=== PATIENT | female | born 1980 | race Caucasian/White ===

== ENCOUNTER 2019-10-30 10:08 | Outpatient (CLI) | payer OTHER ==
[2019-10-30] MEDS ORDERED: CALCIUM GLUCONATE 2,000 MG in DEXTROSE 5%-WATER 100 ML IV PRN (10:21)
[2019-10-30] MEDS ORDERED: NORMAL SALINE 250 ML IV PRN (10:21)
[2019-10-30 10:44] VITALS: BP 129/86
[2019-10-30] MEDS: MAGNESIUM SULFATE/D5W 1 GM/100 ML RTUPB IV SCH ×3 (10:53→12:52)
== END 2019-10-30 14:15 | disposition home or self-care (01) ==
LOC: II 10:08 → 5TH 10:12 → II 14:15
PROVIDERS: ATTEND Internal Medicine
DX: E83.51 Hypocalcemia (principal); E83.42 Hypomagnesemia
CPT/HCPCS: 96365; 96366; 96367; J0610; J3475; J7060; J1642

== ENCOUNTER 2019-11-02 09:12 | Outpatient (CLI) | payer OTHER ==
[~2019-11-02 09:12] MED LIST: CALCIUM GLUCONATE 2,000 MG in DEXTROSE 5%-WATER 100 ML IV PRN; NORMAL SALINE 250 ML IV PRN
[2019-11-02] MEDS: MAGNESIUM SULFATE/D5W 1 GM/100 ML RTUPB IV SCH ×3 (09:36→11:35)
[2019-11-02 09:56] VITALS: BP 120/84
== END 2019-11-02 12:45 | disposition home or self-care (01) ==
LOC: II 09:12 → 5TH 09:32 → II 12:45
PROVIDERS: ATTEND Internal Medicine
DX: E83.51 Hypocalcemia (principal); E83.42 Hypomagnesemia
CPT/HCPCS: 96365; 96366; 96367; J0610; J3475; J7060; J1642

== ENCOUNTER 2019-11-08 09:22 | Outpatient (CLI) | payer OTHER ==
[~2019-11-08 09:22] MED LIST changes: +MAGNESIUM SULFATE 4 GM/D5W 100 ML IV PRN; +MAGNESIUM SULFATE/D5W 1 GM/100 ML RTUPB IV PRN; -NORMAL SALINE 250 ML IV PRN
[2019-11-08 09:36] VITALS: BP 138/74
[2019-11-08] MEDS: NORMAL SALINE 250 ML IV PRN ×2 (09:44→12:57)
[2019-11-08] MEDS ORDERED: ACETAMINOPHEN 325 MG TABLET PO PRN (10:02)
[2019-11-08] MEDS ORDERED: DIPHENHYDRAMINE HCL 50 MG/ML VIAL IV PRN (10:03)
[2019-11-08] MEDS ORDERED: NORMAL SALINE 250 ML IV PRN (10:03)
[2019-11-08] MEDS ORDERED: VEDOLIZUMAB IV PRN (10:07)
[2019-11-08] MEDS ORDERED: NORMAL SALINE IV PRN (10:07)
== END 2019-11-08 13:43 | disposition home or self-care (01) ==
LOC: II 09:22 → 5TH 09:23 → II 13:43
PROVIDERS: ATTEND Internal Medicine
DX: E83.51 Hypocalcemia (principal); E83.42 Hypomagnesemia; K50.111 Crohn's disease of large intestine with rectal bleeding
CPT/HCPCS: 96365; 96366; 96367; J3475; J0610; J7060; J7050; J1642; J3380

== ENCOUNTER 2019-11-15 09:15 | Outpatient (CLI) | payer OTHER ==
[~2019-11-15 09:15] MED LIST changes: -MAGNESIUM SULFATE/D5W 1 GM/100 ML RTUPB IV PRN; +NORMAL SALINE 250 ML IV PRN
[2019-11-15 09:36] VITALS: BP 119/79
== END 2019-11-15 13:47 | disposition home or self-care (01) ==
LOC: II 09:15 → 5TH 09:36 → II 13:47
PROVIDERS: ATTEND Internal Medicine
DX: E83.51 Hypocalcemia (principal); E83.42 Hypomagnesemia
CPT/HCPCS: 96365; 96366; 96367; J3475; J0610; J7060; J1642

== ENCOUNTER 2019-11-22 09:20 | Outpatient (CLI) | payer OTHER ==
[2019-11-22] MEDS ORDERED: CALCIUM GLUCONATE 2,000 MG in DEXTROSE 5%-WATER 100 ML IV PRN (09:26)
[2019-11-22] MEDS ORDERED: MAGNESIUM SULFATE 4 GM/D5W 100 ML IV PRN (09:27)
[2019-11-22] MEDS ORDERED: NORMAL SALINE 250 ML IV PRN (09:28)
[2019-11-22 09:32] VITALS: BP 116/69
== END 2019-11-22 14:01 | disposition home or self-care (01) ==
LOC: II 09:20 → 5TH 09:22 → II 14:01
PROVIDERS: ATTEND Internal Medicine
DX: E83.51 Hypocalcemia (principal); E83.42 Hypomagnesemia
CPT/HCPCS: 96365; 96366; 96367; J3475; J0610; J7060; J1642

== ENCOUNTER 2019-11-30 09:07 | Outpatient (CLI) | payer OTHER ==
[2019-11-30 09:23] VITALS: BP 119/82
== END 2019-11-30 13:37 | disposition home or self-care (01) ==
LOC: II 09:07 → 5TH 09:09 → II 13:37
PROVIDERS: ATTEND Internal Medicine
DX: E83.51 Hypocalcemia (principal); E83.42 Hypomagnesemia
CPT/HCPCS: 96365; 96366; 96367; J3475; J0610; J7060; J1642

== ENCOUNTER 2019-12-07 09:11 | Outpatient (CLI) | payer OTHER ==
[~2019-12-07 09:11] MED LIST changes: +ACETAMINOPHEN 325 MG TABLET PO PRN; +DIPHENHYDRAMINE HCL 50 MG/ML VIAL IV PRN; +NORMAL SALINE 250 ML @ KVO IV PRN; -NORMAL SALINE 250 ML IV PRN; +NORMAL SALINE IV PRN; +VEDOLIZUMAB IV PRN
[2019-12-07 09:24] VITALS: BP 111/71
== END 2019-12-07 14:12 | disposition home or self-care (01) ==
LOC: II 09:11 → 5TH 09:13 → II 14:12
PROVIDERS: ATTEND Internal Medicine
DX: K50.111 Crohn's disease of large intestine with rectal bleeding (principal); E83.51 Hypocalcemia; E83.42 Hypomagnesemia
CPT/HCPCS: 96413; 96366; 96367; 96368; J3475; J0610; J7060; J7050; J1642; J3380; J1200

== ENCOUNTER 2019-12-14 09:12 | Outpatient (CLI) | payer OTHER ==
[2019-12-14] MEDS ORDERED: NORMAL SALINE 250 ML IV PRN (09:28)
[2019-12-14] MEDS ORDERED: MAGNESIUM SULFATE 4 GM/D5W 100 ML IV PRN (09:29)
[2019-12-14 09:44] VITALS: BP 125/91
[2019-12-14] MEDS: CALCIUM GLUCONATE 1 GM/NS 50 ML RTU IV SCH ×2 (09:56→10:56)
== END 2019-12-14 14:08 | disposition home or self-care (01) ==
LOC: II 09:12 → 5TH 09:21 → II 14:08
PROVIDERS: ATTEND Internal Medicine
DX: E83.51 Hypocalcemia (principal); E83.42 Hypomagnesemia
CPT/HCPCS: 96365; 96366; 96367; J3475; J1642; J0610

== ENCOUNTER 2019-12-21 09:12 | Outpatient (CLI) | payer OTHER ==
[~2019-12-21 09:12] MED LIST changes: -ACETAMINOPHEN 325 MG TABLET PO PRN; -CALCIUM GLUCONATE 2,000 MG in DEXTROSE 5%-WATER 100 ML IV PRN; -DIPHENHYDRAMINE HCL 50 MG/ML VIAL IV PRN; -NORMAL SALINE 250 ML @ KVO IV PRN; +NORMAL SALINE 250 ML IV PRN; -NORMAL SALINE IV PRN; -VEDOLIZUMAB IV PRN
[2019-12-21] MEDS: CALCIUM GLUCONATE 1 GM/NS 50 ML RTU IV PRN ×2 (09:32→11:13)
[2019-12-21 09:52] VITALS: BP 110/56
== END 2019-12-21 12:45 | disposition home or self-care (01) ==
LOC: II 09:12 → 5TH 09:14 → II 12:45
PROVIDERS: ATTEND Internal Medicine
DX: E83.51 Hypocalcemia (principal); E83.42 Hypomagnesemia
CPT/HCPCS: 96365; 96366; 96367; J3475; J1642; J0610

== ENCOUNTER 2019-12-28 09:10 | Outpatient (CLI) | payer OTHER ==
[2019-12-28 09:39] VITALS: BP 121/73
[2019-12-28] MEDS: CALCIUM GLUCONATE 1 GM/NS 50 ML RTU IV PRN ×2 (09:44→11:21)
== END 2019-12-28 14:08 | disposition home or self-care (01) ==
LOC: 5TH 09:10 → II 09:10
PROVIDERS: ATTEND Internal Medicine
DX: E83.51 Hypocalcemia (principal); E83.42 Hypomagnesemia
CPT/HCPCS: 96365; 96366; 96367; J3475; J1642; J0610

== ENCOUNTER 2020-01-04 09:02 | Outpatient (CLI) | payer OTHER ==
[~2020-01-04 09:02] MED LIST changes: +ACETAMINOPHEN 325 MG TABLET PO PRN; +DIPHENHYDRAMINE 50 MG in NS 50 ML IV PRN; +NORMAL SALINE 250 ML @ KVO IV PRN; -NORMAL SALINE 250 ML IV PRN; +NORMAL SALINE IV PRN; +VEDOLIZUMAB IV PRN
[2020-01-04 09:41] VITALS: BP 117/76
[2020-01-04] MEDS ORDERED: DIPHENHYDRAMINE HCL 50 MG/ML VIAL IV PRN (10:29)
[2020-01-04] MEDS: CALCIUM GLUCONATE 1 GM/NS 50 ML RTU IV PRN ×2 (10:30→12:38)
== END 2020-01-04 15:50 | disposition home or self-care (01) ==
LOC: II 09:02 → 5TH 09:04 → II 15:50
PROVIDERS: ATTEND Internal Medicine
DX: E83.51 Hypocalcemia (principal); E83.42 Hypomagnesemia; K50.111 Crohn's disease of large intestine with rectal bleeding
CPT/HCPCS: 96413; 96366; 96367; J3475; J7050; J1642; J3380; J0610; J1200

== ENCOUNTER 2020-01-11 08:15 | Outpatient (CLI) | payer OTHER ==
[~2020-01-11 08:15] MED LIST changes: -ACETAMINOPHEN 325 MG TABLET PO PRN; -DIPHENHYDRAMINE 50 MG in NS 50 ML IV PRN; -NORMAL SALINE 250 ML @ KVO IV PRN; +NORMAL SALINE 250 ML IV PRN; -NORMAL SALINE IV PRN; -VEDOLIZUMAB IV PRN
[2020-01-11] MEDS: CALCIUM GLUCONATE 1 GM/NS 50 ML RTU IV PRN ×2 (08:41→10:38)
[2020-01-11 08:42] VITALS: BP 111/75
== END 2020-01-11 13:08 | disposition home or self-care (01) ==
LOC: II 08:15 → 5TH 08:15 → II 13:08
PROVIDERS: ATTEND Internal Medicine
DX: E83.51 Hypocalcemia (principal); E83.42 Hypomagnesemia
CPT/HCPCS: 96365; 96366; J3475; J1642; J0610; 90471; 96368; G0008

== ENCOUNTER 2020-01-18 09:16 | Outpatient (CLI) | payer OTHER ==
[2020-01-18 09:47] VITALS: BP 111/77
[2020-01-18] MEDS: CALCIUM GLUCONATE 1 GM/NS 50 ML RTU IV PRN ×2 (09:47→11:38)
== END 2020-01-18 14:00 | disposition home or self-care (01) ==
LOC: II 09:16
PROVIDERS: ATTEND Internal Medicine
DX: E83.51 Hypocalcemia (principal); E83.42 Hypomagnesemia
CPT/HCPCS: 96365; 96366; 96367; J3475; J1642; J0610

== ENCOUNTER 2020-01-25 09:13 | Outpatient (CLI) | payer OTHER ==
[2020-01-25] MEDS: CALCIUM GLUCONATE 1 GM/NS 50 ML RTU IV PRN ×2 (09:36→11:38)
[2020-01-25 09:41] VITALS: BP 120/78
== END 2020-01-25 13:51 | disposition home or self-care (01) ==
LOC: II 09:13 → 5TH 09:34 → II 13:51
PROVIDERS: ATTEND Internal Medicine
DX: E83.51 Hypocalcemia (principal); E83.42 Hypomagnesemia
CPT/HCPCS: 96366; 96367; 96365; J3475; J1642; J0610

== ENCOUNTER 2020-02-01 09:11 | Outpatient (CLI) | payer OTHER ==
[~2020-02-01 09:11] MED LIST changes: +ACETAMINOPHEN 325 MG TABLET PO PRN; +DIPHENHYDRAMINE HCL 50 MG/ML VIAL IV PRN; +NORMAL SALINE IV PRN; +VEDOLIZUMAB IV PRN
[2020-02-01] MEDS: CALCIUM GLUC IN NACL, ISO-OSM 1 GM/50 ML RTUPB IV PRN ×2 (09:32→11:37)
[2020-02-01 09:40] VITALS: BP 122/78
== END 2020-02-01 14:23 | disposition home or self-care (01) ==
LOC: II 09:11 → 5TH 09:13 → II 14:23
PROVIDERS: ATTEND Internal Medicine
DX: K50.111 Crohn's disease of large intestine with rectal bleeding (principal); E83.51 Hypocalcemia; E83.42 Hypomagnesemia
CPT/HCPCS: 96413; 96366; 96367; J3475; J7050; J1642; J3380; J0610

== ENCOUNTER 2020-02-08 09:20 | Outpatient (CLI) | payer OTHER ==
[~2020-02-08 09:20] MED LIST changes: -ACETAMINOPHEN 325 MG TABLET PO PRN; +CALCIUM GLUCONATE 1 GM/NS 50 ML RTU IV PRN; -DIPHENHYDRAMINE HCL 50 MG/ML VIAL IV PRN; -NORMAL SALINE IV PRN; -VEDOLIZUMAB IV PRN
[2020-02-08] MEDS ORDERED: CALCIUM GLUCONATE 1000 MG/10 ML INJ IV ONE (09:24)
[2020-02-08 09:51] VITALS: BP 121/68
== END 2020-02-08 14:12 | disposition home or self-care (01) ==
LOC: II 09:20 → 5TH 09:23 → II 14:12
PROVIDERS: ATTEND Internal Medicine
DX: E83.51 Hypocalcemia (principal); E83.42 Hypomagnesemia
CPT/HCPCS: 96365; 96366; 96367; J3475; J0610; J1642

== ENCOUNTER 2020-02-15 09:10 | Outpatient (CLI) | payer OTHER ==
[2020-02-15] MEDS ORDERED: CALCIUM GLUC IN NACL, ISO-OSM 2 GM/100 ML RTUPB IV PRN (09:20)
[2020-02-15] MEDS ORDERED: CALCIUM GLUCONATE 1000 MG/10 ML INJ IV ONE (09:37)
[2020-02-15 09:50] VITALS: BP 110/76
== END 2020-02-15 14:15 | disposition home or self-care (01) ==
LOC: II 09:10 → 5TH 09:12 → II 14:15
PROVIDERS: ATTEND Internal Medicine
DX: E83.51 Hypocalcemia (principal); E83.42 Hypomagnesemia
CPT/HCPCS: 96365; 96366; 96367; J3475; J0610; J1642

== ENCOUNTER 2020-02-22 09:14 | Outpatient (CLI) | payer OTHER ==
[~2020-02-22 09:14] MED LIST changes: -CALCIUM GLUCONATE 1 GM/NS 50 ML RTU IV PRN
[2020-02-22] MEDS: CALCIUM GLUCONATE 1 GM/NS 50 ML RTU IV PRN ×2 (09:47→11:36)
[2020-02-22 10:54] VITALS: BP 124/71
== END 2020-02-22 13:45 | disposition home or self-care (01) ==
LOC: II 09:14 → 5TH 09:18 → II 13:45
PROVIDERS: ATTEND Internal Medicine
DX: E83.51 Hypocalcemia (principal); E83.42 Hypomagnesemia
CPT/HCPCS: 96365; 96366; 96367; J3475; J1642; J0610

== ENCOUNTER 2020-02-29 09:14 | Outpatient (CLI) | payer OTHER ==
[~2020-02-29 09:14] MED LIST changes: +ACETAMINOPHEN 325 MG TABLET PO PRN; +DIPHENHYDRAMINE HCL 50 MG/ML VIAL IV PRN; +NORMAL SALINE IV PRN; +VEDOLIZUMAB IV PRN
[2020-02-29 09:25] VITALS: BP 120/81
[2020-02-29] MEDS: CALCIUM GLUCONATE 1 GM/NS 50 ML RTU IV PRN ×2 (09:46→11:56)
== END 2020-02-29 14:13 | disposition home or self-care (01) ==
LOC: II 09:14 → 5TH 09:19 → II 14:13
PROVIDERS: ATTEND Internal Medicine
DX: E83.51 Hypocalcemia (principal); E83.42 Hypomagnesemia; K50.111 Crohn's disease of large intestine with rectal bleeding
CPT/HCPCS: 96413; 96366; 96367; J3475; J7050; J1642; J3380; J0610; 96365

== ENCOUNTER 2020-03-07 09:15 | Outpatient (CLI) | payer OTHER ==
[2020-03-07] MEDS ORDERED: NORMAL SALINE 250 ML IV PRN (09:27)
[2020-03-07] MEDS ORDERED: MAGNESIUM SULFATE 4 GM/D5W 100 ML IV PRN (09:27)
[2020-03-07 09:31] VITALS: BP 125/73
[2020-03-07] MEDS: CALCIUM GLUCONATE 1 GM/NS 50 ML RTU IV PRN ×2 (09:32→11:16)
== END 2020-03-07 13:38 | disposition home or self-care (01) ==
LOC: II 09:15 → 5TH 09:18 → II 13:38
PROVIDERS: ATTEND Internal Medicine
DX: E83.51 Hypocalcemia (principal); E83.42 Hypomagnesemia
CPT/HCPCS: 96365; 96366; 96367; J3475; J1642; J0610

== ENCOUNTER 2020-03-14 09:05 | Outpatient (CLI) | payer OTHER ==
[~2020-03-14 09:05] MED LIST changes: -ACETAMINOPHEN 325 MG TABLET PO PRN; -DIPHENHYDRAMINE HCL 50 MG/ML VIAL IV PRN; -NORMAL SALINE IV PRN; -VEDOLIZUMAB IV PRN
[2020-03-14] MEDS: CALCIUM GLUCONATE 1 GM/NS 50 ML RTU IV PRN ×2 (09:20→10:44)
[2020-03-14 10:12] VITALS: BP 118/72
== END 2020-03-14 13:22 | disposition home or self-care (01) ==
LOC: II 09:05 → 5TH 09:08 → II 13:22
PROVIDERS: ATTEND Internal Medicine
DX: E83.51 Hypocalcemia (principal); E83.42 Hypomagnesemia
CPT/HCPCS: 96365; 96366; 96367; J3475; J1642; J0610

== ENCOUNTER 2020-03-21 09:19 | Outpatient (CLI) | payer OTHER ==
[~2020-03-21 09:19] MED LIST changes: +NORMAL SALINE 250 ML @ KVO IV PRN; -NORMAL SALINE 250 ML IV PRN
[2020-03-21 09:46] VITALS: BP 115/80
[2020-03-21] MEDS: CALCIUM GLUCONATE 1 GM/NS 50 ML RTU IV PRN ×2 (09:51→11:07)
== END 2020-03-21 13:54 | disposition home or self-care (01) ==
LOC: II 09:19 → 5TH 09:22 → II 13:54
PROVIDERS: ATTEND Internal Medicine
DX: E83.51 Hypocalcemia (principal); E83.42 Hypomagnesemia
CPT/HCPCS: 96365; 96366; 96367; J3475; J1642; J0610

== ENCOUNTER 2020-03-28 09:11 | Outpatient (CLI) | payer OTHER ==
[~2020-03-28 09:11] MED LIST changes: +ACETAMINOPHEN 325 MG TABLET PO PRN; +CALCIUM GLUCONATE 1 GM/NS 50 ML RTU IV PRN; +DIPHENHYDRAMINE HCL 50 MG/ML VIAL IV PRN; -NORMAL SALINE 250 ML @ KVO IV PRN; +NORMAL SALINE 250 ML IV PRN; +NORMAL SALINE IV PRN; +VEDOLIZUMAB IV PRN
[2020-03-28 09:22] VITALS: BP 119/73
[2020-03-28] MEDS: CALCIUM GLUCONATE 1 GM/NS 50 ML RTU IV PRN ×2 (09:31→11:08)
== END 2020-03-28 14:54 | disposition home or self-care (01) ==
LOC: II 09:11 → 5TH 09:13 → II 14:54
PROVIDERS: ATTEND Internal Medicine
DX: K50.111 Crohn's disease of large intestine with rectal bleeding (principal); E83.51 Hypocalcemia; E83.42 Hypomagnesemia
CPT/HCPCS: 96413; 96367; J3475; J7050; J1642; J3380; J0610; 96366

== ENCOUNTER 2020-04-04 09:52 | Outpatient (CLI) | payer OTHER ==
[2020-04-04 09:51] VITALS: BP 123/75
[~2020-04-04 09:52] MED LIST changes: -ACETAMINOPHEN 325 MG TABLET PO PRN; -CALCIUM GLUCONATE 1 GM/NS 50 ML RTU IV PRN; -DIPHENHYDRAMINE HCL 50 MG/ML VIAL IV PRN; -NORMAL SALINE IV PRN; -VEDOLIZUMAB IV PRN
[2020-04-04] MEDS: CALCIUM GLUCONATE 1 GM/NS 50 ML RTU IV PRN ×2 (09:58→12:31)
== END 2020-04-04 14:30 | disposition home or self-care (01) ==
LOC: II 09:52 → 5TH 09:52 → II 14:30
PROVIDERS: ATTEND Internal Medicine
DX: E83.51 Hypocalcemia (principal); E83.42 Hypomagnesemia
CPT/HCPCS: 96365; 96366; 96367; J3475; J1642; J0610

== ENCOUNTER 2020-04-11 09:17 | Outpatient (CLI) | payer OTHER ==
[2020-04-11 09:38] VITALS: BP 127/82
[2020-04-11] MEDS: CALCIUM GLUCONATE 1 GM/NS 50 ML RTU IV PRN ×2 (09:41→11:38)
== END 2020-04-11 13:47 | disposition home or self-care (01) ==
LOC: II 09:17 → 5TH 09:19 → II 13:47
PROVIDERS: ATTEND Internal Medicine
DX: E83.51 Hypocalcemia (principal); E83.42 Hypomagnesemia
CPT/HCPCS: 96365; 96366; 96367; J3475; J1642; J0610

== ENCOUNTER 2020-04-18 09:30 | Outpatient (CLI) | payer OTHER ==
[~2020-04-18 09:30] MED LIST changes: +MAGNESIUM SULFATE 4 GM/100 ML RTUPB IV PRN; -MAGNESIUM SULFATE 4 GM/D5W 100 ML IV PRN
[2020-04-18] MEDS: CALCIUM GLUC IN NACL, ISO-OSM 1 GM/50 ML RTUPB IV PRN ×2 (09:52→11:37)
[2020-04-18 09:57] VITALS: BP 109/68
== END 2020-04-18 14:00 | disposition home or self-care (01) ==
LOC: II 09:30 → 5TH 09:57 → II 14:00
PROVIDERS: ATTEND Internal Medicine
DX: E83.51 Hypocalcemia (principal); E83.42 Hypomagnesemia
CPT/HCPCS: 96365; 96366; 96367; J3475; J1642; J0610

== ENCOUNTER 2020-04-25 09:13 | Outpatient (CLI) | payer OTHER ==
[~2020-04-25 09:13] MED LIST changes: +ACETAMINOPHEN 325 MG TABLET PO PRN; +DIPHENHYDRAMINE HCL 50 MG/ML VIAL IV PRN; -MAGNESIUM SULFATE 4 GM/100 ML RTUPB IV PRN; +MAGNESIUM SULFATE 4 GM/D5W 100 ML IV PRN; +NORMAL SALINE IV PRN; +VEDOLIZUMAB IV PRN
[2020-04-25] MEDS: CALCIUM GLUCONATE 1 GM/NS 50 ML RTU IV PRN ×2 (10:03→11:28)
[2020-04-25 11:22] VITALS: BP 123/79
== END 2020-04-25 14:06 | disposition home or self-care (01) ==
LOC: II 09:13 → 5TH 09:49 → II 14:06
PROVIDERS: ATTEND Internal Medicine
DX: E83.51 Hypocalcemia (principal); E83.42 Hypomagnesemia
CPT/HCPCS: 96413; 96366; 96367; J3475; J7050; J1642; J3380; J0610

== ENCOUNTER 2020-05-02 09:26 | Outpatient (CLI) | payer OTHER ==
[~2020-05-02 09:26] MED LIST changes: -ACETAMINOPHEN 325 MG TABLET PO PRN; -DIPHENHYDRAMINE HCL 50 MG/ML VIAL IV PRN; -NORMAL SALINE IV PRN; -VEDOLIZUMAB IV PRN
[2020-05-02] MEDS: CALCIUM GLUCONATE 1 GM/NS 50 ML RTU IV PRN ×2 (09:56→11:52)
[2020-05-02 10:24] VITALS: BP 116/80
== END 2020-05-02 14:43 | disposition home or self-care (01) ==
LOC: II 09:26 → 5TH 10:03 → II 14:43
PROVIDERS: ATTEND Internal Medicine
DX: E83.51 Hypocalcemia (principal); E83.42 Hypomagnesemia
CPT/HCPCS: 96365; 96366; 96367; J3475; J1642; J0610

== ENCOUNTER 2020-05-09 09:16 | Outpatient (CLI) | payer OTHER ==
[2020-05-09] MEDS: CALCIUM GLUCONATE 1 GM/NS 50 ML RTU IV PRN ×2 (10:00→11:14)
[2020-05-09 10:03] VITALS: BP 113/79
== END 2020-05-09 14:07 | disposition home or self-care (01) ==
LOC: II 09:16 → 5TH 09:20 → II 14:07
PROVIDERS: ATTEND Internal Medicine
DX: E83.51 Hypocalcemia (principal); E83.42 Hypomagnesemia
CPT/HCPCS: 96365; 96366; 96367; J3475; J1642; J0610

== ENCOUNTER 2020-05-16 09:19 | Outpatient (CLI) | payer OTHER ==
[2020-05-16] MEDS: CALCIUM GLUCONATE 1 GM/NS 50 ML RTU IV PRN ×2 (09:52→11:29)
[2020-05-16 09:55] VITALS: BP 105/82
== END 2020-05-16 14:04 | disposition home or self-care (01) ==
LOC: 5TH 09:19 → II 09:19
PROVIDERS: ATTEND Internal Medicine
DX: E83.51 Hypocalcemia (principal); E83.42 Hypomagnesemia
CPT/HCPCS: 96365; 96366; 96367; J3475; J1642; J0610

== ENCOUNTER 2020-05-23 09:26 | Outpatient (CLI) | payer OTHER ==
[~2020-05-23 09:26] MED LIST changes: +ACETAMINOPHEN 325 MG TABLET PO PRN; +DIPHENHYDRAMINE HCL 50 MG/ML VIAL IV PRN; +NORMAL SALINE IV PRN; +VEDOLIZUMAB IV PRN
[2020-05-23 09:36] VITALS: BP 132/73
[2020-05-23] MEDS: CALCIUM GLUCONATE 1 GM/NS 50 ML RTU IV PRN ×2 (09:45→11:47)
== END 2020-05-23 14:10 | disposition home or self-care (01) ==
LOC: II 09:26 → 5TH 09:35 → II 14:10
PROVIDERS: ATTEND Internal Medicine
DX: E83.51 Hypocalcemia (principal); E83.42 Hypomagnesemia; K50.111 Crohn's disease of large intestine with rectal bleeding
CPT/HCPCS: 96413; 96366; 96367; J3475; J7050; J1642; J3380; J0610

== ENCOUNTER 2020-05-30 09:11 | Outpatient (CLI) | payer OTHER ==
[~2020-05-30 09:11] MED LIST changes: -ACETAMINOPHEN 325 MG TABLET PO PRN; -DIPHENHYDRAMINE HCL 50 MG/ML VIAL IV PRN; -NORMAL SALINE IV PRN; -VEDOLIZUMAB IV PRN
[2020-05-30] MEDS: CALCIUM GLUCONATE 1 GM/NS 50 ML RTU IV PRN ×2 (09:40→11:17)
[2020-05-30 10:01] VITALS: BP 112/72
== END 2020-05-30 13:45 | disposition home or self-care (01) ==
LOC: II 09:11 → 5TH 09:22 → II 13:45
PROVIDERS: ATTEND Internal Medicine
DX: E83.51 Hypocalcemia (principal); E83.42 Hypomagnesemia
CPT/HCPCS: 96365; 96366; 96367; J3475; J1642; J0610

== ENCOUNTER 2020-06-06 09:17 | Outpatient (CLI) | payer OTHER ==
[2020-06-06] MEDS: CALCIUM GLUCONATE 1 GM/NS 50 ML RTU IV PRN ×2 (09:54→11:14)
[2020-06-06 09:56] VITALS: BP 107/72
== END 2020-06-06 14:00 | disposition home or self-care (01) ==
LOC: II 09:17 → 5TH 09:23 → II 14:00
PROVIDERS: ATTEND Internal Medicine
DX: E83.51 Hypocalcemia (principal); E83.42 Hypomagnesemia
CPT/HCPCS: 96365; 96366; 96367; J3475; J1642; J0610

== ENCOUNTER 2020-06-13 09:20 | Outpatient (CLI) | payer OTHER ==
[2020-06-13] MEDS: CALCIUM GLUCONATE 1 GM/NS 50 ML RTU IV PRN ×2 (10:05→12:23)
[2020-06-13 10:19] VITALS: BP 112/73
== END 2020-06-13 14:45 | disposition home or self-care (01) ==
LOC: II 09:20 → 5TH 09:22 → II 14:45
PROVIDERS: ATTEND Internal Medicine
DX: E83.51 Hypocalcemia (principal); E83.42 Hypomagnesemia
CPT/HCPCS: 96365; 96366; 96367; J0610; J1642; J3475

== ENCOUNTER 2020-06-27 11:15 | Outpatient (CLI) | payer OTHER ==
[~2020-06-27 11:15] MED LIST changes: +CALCIUM GLUCONATE 1 GM/NS 50 ML RTU IV PRN; +NORMAL SALINE IV PRN; +POTASSIUM CHLORIDE IV PRN
[2020-06-27 11:38] VITALS: BP 123/81
== END 2020-06-27 17:02 | disposition home or self-care (01) ==
LOC: II 11:15 → 5TH 11:16 → 4S 12:05 → II 17:02
PROVIDERS: ATTEND Internal Medicine
DX: E83.51 Hypocalcemia (principal); E83.42 Hypomagnesemia
CPT/HCPCS: 96365; 96366; 96367; J3475; J3480; J7050; J1642; J0610

== ENCOUNTER 2020-07-04 09:22 | Outpatient (CLI) | payer OTHER ==
[~2020-07-04 09:22] MED LIST changes: -CALCIUM GLUCONATE 1 GM/NS 50 ML RTU IV PRN
[2020-07-04] MEDS: CALCIUM GLUCONATE 1 GM/NS 50 ML RTU IV PRN ×2 (10:03→11:50)
[2020-07-04 10:29] VITALS: BP 116/76
== END 2020-07-04 14:58 | disposition home or self-care (01) ==
LOC: II 09:22 → 5TH 09:26 → II 14:58
PROVIDERS: ATTEND Internal Medicine
DX: E83.51 Hypocalcemia (principal); E83.42 Hypomagnesemia
CPT/HCPCS: 96365; 96366; 96368; J3475; J3480; J7040; J1642; J0610; 96367

== ENCOUNTER 2020-07-11 09:22 | Outpatient (CLI) | payer OTHER ==
[2020-07-11] MEDS ORDERED: MAGNESIUM SULFATE 4 GM/D5W 100 ML IV PRN (09:40)
[2020-07-11] MEDS ORDERED: NORMAL SALINE 250 ML IV PRN (09:41)
[2020-07-11 09:42] VITALS: BP 110/74
[2020-07-11] MEDS ORDERED: NORMAL SALINE IV PRN (09:48)
[2020-07-11] MEDS ORDERED: POTASSIUM CHLORIDE IV PRN (09:48)
[2020-07-11] MEDS: CALCIUM GLUCONATE 1 GM/NS 50 ML RTU IV PRN ×2 (09:58→11:33)
== END 2020-07-11 14:35 | disposition home or self-care (01) ==
LOC: II 09:22 → 5TH 09:28 → II 14:35
PROVIDERS: ATTEND Internal Medicine
DX: E83.51 Hypocalcemia (principal); E83.42 Hypomagnesemia
CPT/HCPCS: 96365; 96366; 96367; J3475; J3480; J7030; J1642; J0610; 96368

== ENCOUNTER 2020-07-18 09:20 | Outpatient (CLI) | payer OTHER ==
[~2020-07-18 09:20] MED LIST changes: +NORMAL SALINE 1000 ML 1,000 ML with POTASSIUM CHLORIDE 30 MEQ IV PRN; -NORMAL SALINE IV PRN; -POTASSIUM CHLORIDE IV PRN
[2020-07-18] MEDS: CALCIUM GLUCONATE 1 GM/NS 50 ML RTU IV PRN ×2 (09:48→11:10)
[2020-07-18 11:18] VITALS: BP 113/73
== END 2020-07-18 14:00 | disposition home or self-care (01) ==
LOC: II 09:20 → 5TH 09:23 → II 14:00
PROVIDERS: ATTEND Internal Medicine
DX: E83.51 Hypocalcemia (principal); E83.42 Hypomagnesemia; E87.6 Hypokalemia
CPT/HCPCS: 96365; 96366; 96367; 96368; J3475; J3480; J7030; J1642; J0610

== ENCOUNTER 2020-07-25 09:19 | Outpatient (CLI) | payer OTHER ==
[2020-07-25] MEDS ORDERED: NORMAL SALINE 250 ML IV PRN (09:32)
[2020-07-25] MEDS ORDERED: MAGNESIUM SULFATE 4 GM/D5W 100 ML IV PRN (09:33)
[2020-07-25] MEDS ORDERED: NORMAL SALINE 1000 ML 1,000 ML with POTASSIUM CHLORIDE 30 MEQ IV PRN ×2 (09:35)
[2020-07-25] MEDS: CALCIUM GLUCONATE 1 GM/NS 50 ML RTU IV PRN ×2 (09:56→11:23)
[2020-07-25 14:05] VITALS: BP 128/83
== END 2020-07-25 14:00 | disposition home or self-care (01) ==
LOC: II 09:19 → 5TH 09:22 → II 14:00
PROVIDERS: ATTEND Internal Medicine
DX: E83.51 Hypocalcemia (principal); E83.42 Hypomagnesemia; E87.6 Hypokalemia
CPT/HCPCS: 96365; 96366; 96368; J3475; J3480; J7030; J1642; J0610; 96367

== ENCOUNTER 2020-08-01 09:42 | Outpatient (CLI) | payer OTHER ==
[2020-08-01 09:59] VITALS: BP 109/71
[2020-08-01] MEDS: CALCIUM GLUCONATE 1 GM/NS 50 ML RTU IV PRN ×2 (10:00→11:39)
== END 2020-08-01 14:33 | disposition home or self-care (01) ==
LOC: II 09:42 → 5TH 09:53 → II 14:33
PROVIDERS: ATTEND Internal Medicine
DX: E83.51 Hypocalcemia (principal); E83.42 Hypomagnesemia; E87.6 Hypokalemia
CPT/HCPCS: 96365; 96366; 96368; J3475; J3480; J7030; J1642; J0610; 96367

== ENCOUNTER 2020-08-08 09:18 | Outpatient (CLI) | payer OTHER ==
[~2020-08-08 09:18] MED LIST changes: -NORMAL SALINE 1000 ML 1,000 ML with POTASSIUM CHLORIDE 30 MEQ IV PRN
[2020-08-08] MEDS: CALCIUM GLUCONATE 1 GM/NS 50 ML RTU IV PRN ×2 (09:58→12:22)
[2020-08-08 10:27] VITALS: BP 118/73
== END 2020-08-08 14:30 | disposition home or self-care (01) ==
LOC: II 09:18 → 5TH 09:20 → II 14:30
PROVIDERS: ATTEND Internal Medicine
DX: E83.51 Hypocalcemia (principal); E83.42 Hypomagnesemia; E87.6 Hypokalemia
CPT/HCPCS: 96365; 96366; 96367; J3475; J1642; J0610

== ENCOUNTER 2020-08-15 09:29 | Outpatient (CLI) | payer OTHER ==
[2020-08-15 10:03] VITALS: BP 144/91
[2020-08-15] MEDS: CALCIUM GLUCONATE 1 GM/NS 50 ML RTU IV SCH ×4 (10:03→14:55)
== END 2020-08-15 14:30 | disposition home or self-care (01) ==
LOC: II 09:29 → 5TH 09:31 → II 14:30
PROVIDERS: ATTEND Internal Medicine
DX: E83.51 Hypocalcemia (principal); E83.42 Hypomagnesemia; E87.6 Hypokalemia
CPT/HCPCS: 96365; 96366; 96367; J3475; J1642; J0610

== ENCOUNTER 2020-08-22 09:28 | Outpatient (CLI) | payer OTHER ==
[~2020-08-22 09:28] MED LIST changes: +NORMAL SALINE 250 ML @ KVO IV PRN; -NORMAL SALINE 250 ML IV PRN
[2020-08-22] MEDS: CALCIUM GLUCONATE 1 GM/NS 50 ML RTU IV SCH ×2 (10:00→11:52)
[2020-08-22 10:42] VITALS: BP 107/76
== END 2020-08-22 14:15 | disposition home or self-care (01) ==
LOC: II 09:28 → 5TH 09:31 → II 14:15
PROVIDERS: ATTEND Internal Medicine
DX: E83.51 Hypocalcemia (principal); E83.42 Hypomagnesemia; E87.6 Hypokalemia
CPT/HCPCS: 96365; 96366; 96367; J3475; J1642; J0610

== ENCOUNTER 2020-08-29 09:30 | Outpatient (CLI) | payer OTHER ==
[~2020-08-29 09:30] MED LIST changes: -NORMAL SALINE 250 ML @ KVO IV PRN; +NORMAL SALINE 250 ML IV PRN
[2020-08-29] MEDS: CALCIUM GLUCONATE 1 GM/NS 50 ML RTU IV PRN ×2 (09:59→11:57)
[2020-08-29 10:37] VITALS: BP 119/75
== END 2020-08-29 14:13 | disposition home or self-care (01) ==
LOC: II 09:30 → 5TH 09:33 → II 14:13
PROVIDERS: ATTEND Internal Medicine
DX: E83.51 Hypocalcemia (principal); E83.42 Hypomagnesemia; E87.6 Hypokalemia
CPT/HCPCS: 96365; 96366; 96367; J3475; J1642; J0610

== ENCOUNTER 2020-09-05 09:23 | Outpatient (CLI) | payer OTHER ==
[2020-09-05] MEDS ORDERED: NORMAL SALINE 250 ML IV PRN (09:38)
[2020-09-05] MEDS ORDERED: MAGNESIUM SULFATE 4 GM/D5W 100 ML IV PRN (09:39)
[2020-09-05] MEDS ORDERED: POTASSIUM CHLORIDE IV PRN ×2 (09:40)
[2020-09-05] MEDS ORDERED: NORMAL SALINE IV PRN ×2 (09:40)
[2020-09-05] MEDS: CALCIUM GLUCONATE 1 GM/NS 50 ML RTU IV PRN ×2 (10:10→12:00)
[2020-09-05 10:26] VITALS: BP 118/75
== END 2020-09-05 14:15 | disposition home or self-care (01) ==
LOC: II 09:23 → 5TH 09:25 → II 14:15
PROVIDERS: ATTEND Internal Medicine
DX: E83.51 Hypocalcemia (principal); E83.42 Hypomagnesemia; E87.6 Hypokalemia
CPT/HCPCS: 96365; 96366; 96367; J3475; J3480; J7040; J1642; J0610

== ENCOUNTER 2020-09-12 09:17 | Outpatient (CLI) | payer OTHER ==
[~2020-09-12 09:17] MED LIST changes: +CALCIUM GLUCONATE 1 GM/NS 50 ML RTU IV PRN; +NORMAL SALINE IV PRN; +POTASSIUM CHLORIDE IV PRN
[2020-09-12] MEDS: CALCIUM GLUCONATE 1 GM/NS 50 ML RTU IV PRN ×2 (09:48→11:20)
[2020-09-12 09:57] VITALS: BP 117/67
== END 2020-09-12 14:35 | disposition home or self-care (01) ==
LOC: II 09:17 → 5TH 09:20 → II 14:35
PROVIDERS: ATTEND Internal Medicine
DX: E83.51 Hypocalcemia (principal); E83.42 Hypomagnesemia; E87.6 Hypokalemia
CPT/HCPCS: 96365; 96366; 96368; J3475; J3480; J7040; J1642; J0610; 96367

== ENCOUNTER 2020-09-19 09:27 | Outpatient (CLI) | payer OTHER ==
[~2020-09-19 09:27] MED LIST changes: -CALCIUM GLUCONATE 1 GM/NS 50 ML RTU IV PRN; -NORMAL SALINE IV PRN; -POTASSIUM CHLORIDE IV PRN
[2020-09-19 09:50] VITALS: BP 120/69
[2020-09-19] MEDS ORDERED: NORMAL SALINE 1000 ML 1,000 ML with POTASSIUM CHLORIDE 30 MEQ IV PRN ×2 (09:53)
[2020-09-19] MEDS: CALCIUM GLUCONATE 1 GM/NS 50 ML RTU IV PRN ×2 (09:56→11:21)
== END 2020-09-19 14:28 | disposition home or self-care (01) ==
LOC: II 09:27 → 5TH 09:29 → II 14:28
PROVIDERS: ATTEND Internal Medicine
DX: E83.51 Hypocalcemia (principal); E83.42 Hypomagnesemia; E87.6 Hypokalemia
CPT/HCPCS: 96365; 96366; 96368; J3475; J3480; J7030; J1642; J0610

== ENCOUNTER 2020-10-10 09:08 | Outpatient (CLI) | payer OTHER ==
[~2020-10-10 09:08] MED LIST changes: +CALCIUM GLUCONATE 1 GM/NS 50 ML RTU IV PRN
[2020-10-10 09:38] VITALS: BP 117/64
[2020-10-10] MEDS: CALCIUM GLUCONATE 1 GM/NS 50 ML RTU IV PRN ×2 (09:39→12:21)
== END 2020-10-10 14:52 | disposition home or self-care (01) ==
LOC: II 09:08 → 5TH 09:14 → II 14:52
PROVIDERS: ATTEND Internal Medicine
DX: E83.51 Hypocalcemia (principal); E83.42 Hypomagnesemia; E87.6 Hypokalemia
CPT/HCPCS: 96365; 96366; 96367; J0610; J1642; J3475

== ENCOUNTER 2020-10-24 12:08 | Outpatient (CLI) | payer OTHER ==
[~2020-10-24 12:08] MED LIST changes: -CALCIUM GLUCONATE 1 GM/NS 50 ML RTU IV PRN
[2020-10-24] MEDS ORDERED: POTASSI CL 20 MEQ/50 ML RIDER 20 MEQ/50 ML RTUPB IV ONE (12:35)
[2020-10-24] MEDS: CALCIUM GLUCONATE 1 GM/NS 50 ML RTU IV PRN ×2 (12:40→14:23)
[2020-10-24] MEDS ORDERED: POTASSIUM CHLORIDE IV PRN ×2 (12:41)
[2020-10-24] MEDS ORDERED: NORMAL SALINE IV PRN ×2 (12:41)
[2020-10-24] MEDS ORDERED: POTASSIUM CHLORIDE 20 MEQ/50 ML RTU IV ONE (13:15)
[2020-10-24 13:42] VITALS: BP 131/72
== END 2020-10-24 16:48 | disposition home or self-care (01) ==
LOC: II 12:08 → 5TH 12:12 → II 16:48
PROVIDERS: ATTEND Internal Medicine
DX: E83.51 Hypocalcemia (principal); E83.42 Hypomagnesemia; E87.6 Hypokalemia
CPT/HCPCS: 96365; 96366; 96368; J3475; J3480; J1642; J0610; 96367; J7040

== ENCOUNTER 2020-10-29 14:15 | Emergency (ER) | payer OTHER ==
[2020-10-29] MEDS ORDERED: ONDANSETRON HCL INJ/PF 4 MG/2 ML SDV IV ONE ×2 (14:20→17:37)
[2020-10-29] MEDS ORDERED: MORPHINE SULFATE 10 MG/ML INJ IV ONE ×2 (14:20→17:37)
--- NOTE | 2020-10-29 14:21 | ER Document Report ---
ED Medical Screen (RME) - General Stated Complaint: ABDOMINAL PAIN Time Seen by Provider: 10/29/20 14:19 Primary Care Provider: DELMY MAJOR NP [Primary Care Provider] - Follow up as needed Notes: HPI: 40-year-old female with history of Crohn's disease with multiple surgeries related to her Crohn's disease who follows at [facility] presenting for evaluation of right upper quadrant epigastric pain that began early this morning. No vomiting no fever feels like a Crohn's exacerbation recently started on Stelara 5 weeks ago. PHYSICAL EXAMINATION: Moderately uncomfortable mildly tachycardic. There is tenderness in the right upper quadrant epigastric region on palpation I have greeted and performed a rapid initial assessment of this patient. A comprehensive ED assessment and evaluation of the patient, analysis of test results and completion of medical decision making process will be conducted by an additional ED providers. TRAVEL OUTSIDE OF THE [place] IN LAST 30 DAYS: No - Related Data Allergies/Adverse Reactions: Penicillins Allergy (Severe, Verified 01/03/20 10:17) cephalexin [From Keflex] Allergy (Verified 01/03/20 10:18) Doctor's Discharge - Discharge Referrals: DELMY MAJOR NP [Primary Care Provider] - Follow up as needed
[2020-10-29 15:08] LABS: ABSOLUTE EOSINOPHILS # (AUTO) 0.3 10^3/uL (0.0-0.6); ABSOLUTE LYMPHOCYTES (AUTO) 1.1 10^3/uL (0.5-4.7); ABSOLUTE MONOCYTES (AUTO) 0.5 10^3/uL (0.1-1.4); ABSOLUTE NEUT (AUTO) 6.3 10^3/uL (1.7-8.2); BASOPHILS % (AUTO) 0.5 % (0-2); EOSINOPHILS % (AUTO) 3.2 % (0-6); HEMATOCRIT 40.4 % (36.0-47.0); HEMOGLOBIN 13.6 g/dL (12.0-15.5); LYMPHOCYTES % (AUTO) 13.9 % (13-45); MEAN CORPUSCULAR HGB CONC 33.7 g/dL (32.0-36.0); MEAN CORPUSCULAR VOLUME 86 fl (80-97); PLATELET COUNT 255 10^3/uL (150-450); RED BLOOD COUNT 4.68 10^6/uL (3.72-5.28); RED CELL DISTRIBUTION WIDTH 13.3 % (11.5-14.0); SEGMENTED NEUTROPHILS % (AUTO) 76.4 % (42-78); TOTAL CELLS COUNTED % (AUTO) 100 %; WHITE BLOOD COUNT 8.2 10^3/uL (4.0-10.5)
[2020-10-29 15:17] LABS: ALKALINE PHOSPHATASE 120 U/L (38-126); ANION GAP 8 (5-19); ASPARTATE AMINO TRANSFERASE 21 U/L (14-36); BILIRUBIN,DIRECT 0.2 mg/dL (0.0-0.4); BILIRUBIN,TOTAL 0.5 mg/dL (0.2-1.3); BLOOD UREA NITROGEN 20 mg/dL (7-20); CALCIUM 8.3 mg/dL (8.4-10.2); CARBON DIOXIDE 27 mmol/L (22-30); CHLORIDE 101 mmol/L (98-107); GLUCOSE 110 mg/dL (75-110); POTASSIUM 4.3 mmol/L (3.6-5.0); TOTAL PROTEIN 6.5 g/dL (6.3-8.2)
[2020-10-29 15:23] LABS: APPEARANCE,URINE CLEAR; COLOR,URINE YELLOW; GLUCOSE, URINE NEGATIVE (NEGATIVE)
[2020-10-29 15:24] LABS: ADD MANUAL MICROSCOPIC YES; BILIRUBIN,URINE NEGATIVE (NEGATIVE); KETONES,URINE NEGATIVE (NEGATIVE); LEUKOCYTE ESTERASE,URINE NEGATIVE (NEGATIVE); NITRITE,URINE NEGATIVE (NEGATIVE); PROTEIN,URINE NEGATIVE (NEGATIVE); URINE SPECIFIC GRAVITY 1.025; UROBILINOGEN,URINE NEGATIVE mg/dL (<2.0)
[2020-10-29 15:25] LABS: RBC,URINE NONE SEEN /HPF; WBC,URINE NONE SEEN /HPF
--- NOTE | 2020-10-29 15:36 | ER Document Report ---
ED GI/ - General Stated Complaint: ABDOMINAL PAIN Time Seen by Provider: 10/29/20 14:19 Primary Care Provider: DELMY MAJOR NP [Primary Care Provider] - Follow up as needed TRAVEL OUTSIDE OF THE [place] IN LAST 30 DAYS: No - HPI Notes: Patient is a 40 y/o female with a hx of crohn's disease who presents with abdominal pain that began one week ago and worsened today. Patient describes her pain as abdominal cramping that is consistent with her usual Crohn's exacerbations. Patient reports diarrhea but states this is chronic and reports no new changes. She denies nausea, vomiting, hematochezia, and fever. Patient has been taking Percocet for her pain but states the pain worsened today to the point where the Percocet did not help. Patient was started on Stelara 6 weeks ago and she currently sees GI at [facility]. She has a history of 4 abdominal surgeries as a result of her Crohn's and reports having 4 feet of bowel resected. Patient also reports a hx of appendectomy. Patient has a port in [place] and is seen twice a week for management of her electrolyte deficiency (K, Mg, and Ca). - Related Data Allergies/Adverse Reactions: Penicillins Allergy (Severe, Verified 10/29/20 16:02) cephalexin [From Keflex] Allergy (Verified 10/29/20 16:02) Past Medical History - General Information source: Patient - Social History Smoking Status: Unknown if Ever Smoked Family History: Reviewed & Not Pertinent GI Medical History: Reports: Hx Crohn's Disease Review of Systems - Review of Systems Constitutional: No symptoms reported EENT: No symptoms reported Cardiovascular: No symptoms reported Respiratory: No symptoms reported Gastrointestinal: See HPI Genitourinary: No symptoms reported Female Genitourinary: No symptoms reported Musculoskeletal: No symptoms reported Skin: No symptoms reported Hematologic/Lymphatic: No symptoms reported Neurological/Psychological: No symptoms reported Physical Exam - Vital signs Vitals: Temp Pulse Resp BP Pulse Ox 98.2 F 85 18 150/91 H 100 10/29/20 14:22 10/29/20 14:22 10/29/20 14:22 10/29/20 14:22 10/29/20 14:22 - Notes Notes: PHYSICAL EXAMINATION: VITALS: Vitals reviewed and within normal limits. GENERAL: Well-appearing, well-nourished and in no acute distress. HEAD: Atraumatic, normocephalic. EYES: Pupils equal, round, and reactive to light, extraocular movements intact, sclera anicteric, conjunctiva are normal. ENT: Nares patent. Moist mucous membranes. Oropharynx clear without exudates. NECK: Normal range of motion, supple without lymphadenopathy. LUNGS: Breath sounds clear to auscultation bilaterally and equal. No wheezes, rales, or rhonchi. HEART: Regular, rate, and rhythm without murmurs. ABDOMEN: Soft abdomen with normoactive bowel sounds. Diffusely tender. Nega tive McBurney's point tenderness and negative Fong's. No guarding, no rebound. No masses appreciated. EXTREMITIES: Normal range of motion, no pitting or edema. No cyanosis. NEUROLOGICAL: No focal neurological deficits. Moves all extremities spontaneously and on command. PSYCH: Normal mood, normal affect. SKIN: Warm, Dry, normal turgor, no rashes or lesions noted. Course - Re-evaluation Re-evalutation: Patient is a 40 y/o female with a hx of Crohn's disease who presents with abdominal pain that worsened today. Patient is mildly hypertensive with a BP of 150/91. Vital signs are otherwise normal. On exam, abdomen is soft and diffusely tender with normal bowel sounds. CBC is unremarkable within normal limits. CMP shows a minimally low Na of 136.4 and Ca of 8.3 but this is consistent with her electrolyte deficiency due to Crohn's disease. Patient is managed outpatient for this and has an appointment tomorrow. UA is unremarkable and within normal limits. CT Abd/Pelvis shows somewhat hydropic appearing gal lbladder without evidence of cholelithiasis or cholecystitis. Subtle mesenteric fat stranding seen adjacent to loops of nondilated small bowel within the left upper quadrant noting concomitant reactive appearing mesenteric lymph nodes may represent a developing enteritis. 10/29/20 18:50 I consulted my supervising physician, Dr. Landers, concerning this patient. He reviewed the CT results and labwork. Based on the CT, he believes she may be developing an ileus due to a virus. He recommended testing her for COVID and having her follow up with her cryptographic technician. I spoke with the patient concerning these recommendations and she is declining COVID testing as her family has been isolated at home in quarantine as her children are home- schooled. She agrees to call her cryptographic technician in the morning to schedule an appointment. Return precautions given. Patient understands and is in a greement with the plan. Patient will be discharged home. - Vital Signs Vital signs: Temp Pulse Resp BP Pulse Ox 98.1 F 75 16 127/84 H 100 10/29/20 19:30 10/29/20 19:30 10/29/20 19:30 10/29/20 19:30 10/29/20 19:30 - Laboratory Results Result Diagrams: 10/29/20 14:30 10/29/20 14:30 Laboratory Results Interpreted: 10/29/20 14:30 Sodium 136.4 L Calcium 8.3 L Critical Laboratory Results Reviewed: No Critical Results - Radiology Results Radiology Results Interpreted: Abdomen/Pelvis CT 10/29/20 00:00 IMPRESSION: Somewhat hydropic appearing gallbladder without evidence of cholelithiasis or cholecystitis. Subtle mesenteric fat stranding seen adjacent to loops of nondilated small bowel within the left upper quadrant noting concomitant reactive appearing mesenteric lymph nodes may represent a developing enteritis. Critical Radiology Results Reviewed: No Critical Results Discharge - Discharge Clinical Impression: Abdominal pain Qualifiers: Abdominal location: upper abdomen, unspecified Qualified Code(s): R10.10 - Upper abdominal pain, unspecified Crohn disease Qualifiers: Gastrointestinal tract location: small intestine Digestive disease complication type: without complication Qualified Code(s): K50.00 - Crohn's disease of small intestine without complications Condition: Stable Disposition: HOME, SELF-CARE Instructions: Abdominal Pain ([facility]) Prescriptions: Ondansetron [Zofran Odt 4 mg Tablet] 1 - 2 tab PO Q4HP PRN #[id number] tab.rapdis PRN Reason: Referrals: DELMY MAJOR, PARTICIPANT ADMINISTRATOR [Primary Care Provider] - Follow up as needed
--- NOTE | 2020-10-29 18:08 | RADIOLOGY REPORT (SQ) ---
EXAM DESCRIPTION: CT ABD/PELVIS WITH IV ORAL IMAGES COMPLETED DATE/TIME: 10/29/2020 5:38 pm REASON FOR STUDY: RUQ pain, crohns hx COMPARISON: None. TECHNIQUE: CT scan of the abdomen and pelvis performed using helical scanning technique with dynamic intravenous contrast injection. No oral contrast. Images reviewed with lung, soft tissue, and bone windows. Reconstructed coronal and sagittal MPR images reviewed. Delayed images for evaluation of the urinary system also acquired. All images stored on PACS. All CT scanners at this facility use dose modulation, iterative reconstruction, and/or weight based d osing when appropriate to reduce radiation dose to as low as reasonably achievable (ALARA). [facility]: Dose Right [facility]: CareDose [facility]: Dose Right [facility]: Teradose 4D [facility]: Accessbio CONTRAST TYPE AND DOSE: contrast/concentration: Isovue 350.00 mmol/ml; Total Contrast Delivered: 100 .0 ml; Total Saline Delivered: 72.0 ml RENAL FUNCTION: BUN 20; creatinine 0.84 RADIATION DOSE: CT Rad equipment meets quality standard of care and radiation dose reduction techniq ues were employed. CTDIvol: 11.2 - 15.3 mGy. DLP: 1412 mGy-cm.. LIMITATIONS: None. FINDINGS: LOWER CHEST: No significant findings. No nodules or infiltrates. LIVER: Normal size. No masses. No dilated ducts. SPLEEN: Normal size. No focal lesions. PANCREAS: No masses. No significant calcifications. No adjacent inflammation or peripancreatic fluid collections. Pancreatic duct not dilated. GALLBLADDER: Somewhat hydropic appearing. No identified stones by CT criteria. No inflammatory clayton es to suggest cholecystitis. ADRENAL GLANDS: No significant masses or asymmetry. RIGHT KIDNEY AND URETER: No solid masses. No significant calcifications. No hydronephrosis or hyd roureter. LEFT KIDNEY AND URETER: No solid masses. No significant calcifications. No hydronephrosis or hydr oureter. AORTA AND VESSELS: No aneurysm. No dissection. Renal arteries, SMA, celiac without stenosis. RETROPERITONEUM: No retroperitoneal adenopathy, hemorrhage or masses. BOWEL AND PERITONEAL CAVITY: Postsurgical changes without evidence of anastomotic leak or obstruction . Trace inflammatory changes are seen about few loops of small bowel within the left upper quadrant ; note is made of associated reactive appearing lymph nodes in this region. The remaining bowel is u nremarkable. APPENDIX: Not visualized. PELVIS: A small amount of fluid seen within the pelvis is likely physiologic. No pelvic masses. ABDOMINAL WALL: 2 small fat containing periumbilical hernias. BONES: No significant or acute findings. OTHER: No other significant finding. IMPRESSION: Somewhat hydropic appearing gallbladder without evidence of cholelithiasis or cholecysti tis. Subtle mesenteric fat stranding seen adjacent to loops of nondilated small bowel within the lef t upper quadrant noting concomitant reactive appearing mesenteric lymph nodes may represent a develop ing enteritis. TECHNICAL DOCUMENTATION: JOB ID: [id number] Quality ID # [id number]: Final reports with documentation of one or more dose reduction techniques (e.g., Au tomated exposure control, adjustment of the mA and/or kV according to patient size, use of iterative reconstruction technique) 2010 [employer]- All Rights Reserved Reading location - IP/workstation name: [email or web address]
[2020-10-29 19:32] VITALS: BP 127/84
== END 2020-10-29 19:30 | disposition home or self-care (01) ==
LOC: ER 14:15
DX: K50.00 Crohn's disease of small intestine without complications (principal); R10.10 Upper abdominal pain, unspecified; R10.9 Unspecified abdominal pain; R19.7 Diarrhea, unspecified; Z79.899 Other long term (current) drug therapy; Z98.890 Other specified postprocedural states; Z88.0 Allergy status to penicillin; Z88.1 Allergy status to other antibiotic agents
CPT/HCPCS: 96376; 99285; 96374; 96375; 36415; 83690; 85025; 80053; 81001; 74177; J2270; J2405

== ENCOUNTER 2020-10-31 09:29 | Outpatient (CLI) | payer OTHER ==
[2020-10-31 09:37] VITALS: BP 123/74
[2020-10-31] MEDS: CALCIUM GLUCONATE 1 GM/NS 50 ML RTU IV PRN ×2 (09:51→11:39)
== END 2020-10-31 14:00 | disposition home or self-care (01) ==
LOC: II 09:29 → 5TH 09:33 → II 14:00
PROVIDERS: ATTEND Internal Medicine
DX: E83.51 Hypocalcemia (principal); E83.42 Hypomagnesemia; E87.6 Hypokalemia
CPT/HCPCS: 96365; 96366; 96368; J3475; J1642; J0610

== ENCOUNTER 2020-11-07 09:20 | Outpatient (CLI) | payer OTHER ==
[2020-11-07] MEDS: CALCIUM GLUCONATE 1 GM/NS 50 ML RTU IV PRN ×2 (09:46→11:23)
[2020-11-07 11:08] VITALS: BP 109/70
== END 2020-11-07 14:39 | disposition home or self-care (01) ==
LOC: II 09:20 → 5TH 09:22 → II 14:39
PROVIDERS: ATTEND Internal Medicine
DX: E83.51 Hypocalcemia (principal); E83.42 Hypomagnesemia; E87.6 Hypokalemia
CPT/HCPCS: 96365; 96366; 96368; J3475; J1642; J0610

== ENCOUNTER 2020-11-25 10:23 | Outpatient (CLI) | payer OTHER ==
[~2020-11-25 10:23] MED LIST changes: +DIPHENHYDRAMINE HCL 50 MG/ML VIAL IV PRN; +FAMOTIDINE INJ/PF 20 MG/2 ML SDV IV PRN
[2020-11-25] MEDS ORDERED: CALCIUM GLUCONATE 1 GM/NS 50 ML RTU IV PRN (10:24)
[2020-11-25 12:16] VITALS: BP 123/81
== END 2020-11-25 14:45 | disposition home or self-care (01) ==
LOC: II 10:23 → 5TH 10:51 → II 14:45
PROVIDERS: ATTEND Internal Medicine
DX: E83.51 Hypocalcemia (principal); E83.42 Hypomagnesemia; E87.6 Hypokalemia
CPT/HCPCS: 96365; 96366; 96368; J3475; J1642; J0610; S0028

== ENCOUNTER 2020-11-28 09:04 | Outpatient (CLI) | payer OTHER ==
[~2020-11-28 09:04] MED LIST changes: -DIPHENHYDRAMINE HCL 50 MG/ML VIAL IV PRN; -FAMOTIDINE INJ/PF 20 MG/2 ML SDV IV PRN
[2020-11-28 09:28] VITALS: BP 125/73
[2020-11-28] MEDS: CALCIUM GLUCONATE 1 GM/NS 50 ML RTU IV PRN ×2 (09:29→09:30)
== END 2020-11-28 13:45 | disposition home or self-care (01) ==
LOC: II 09:04 → 5TH 09:13 → II 13:45
PROVIDERS: ATTEND Internal Medicine
DX: E83.51 Hypocalcemia (principal); E83.42 Hypomagnesemia; E87.6 Hypokalemia
CPT/HCPCS: 96365; 96366; 96368; J3475; J1642; J0610

== ENCOUNTER 2020-12-02 09:26 | Outpatient (CLI) | payer OTHER ==
[~2020-12-02 09:26] MED LIST changes: +CALCIUM GLUCONATE 1 GM/NS 50 ML RTU IV PRN
[2020-12-02 10:30] VITALS: BP 113/70
== END 2020-12-02 14:31 | disposition home or self-care (01) ==
LOC: II 09:26 → 5TH 09:27 → II 14:31
PROVIDERS: ATTEND Internal Medicine
DX: E83.51 Hypocalcemia (principal); E83.42 Hypomagnesemia; E87.6 Hypokalemia
CPT/HCPCS: 96365; 96366; 96368; J3475; J1642; J0610

== ENCOUNTER 2020-12-05 08:59 | Outpatient (CLI) | payer OTHER ==
[~2020-12-05 08:59] MED LIST changes: +NORMAL SALINE 250 ML @ KVO IV PRN; -NORMAL SALINE 250 ML IV PRN
[2020-12-05 09:10] VITALS: BP 114/68
== END 2020-12-05 14:00 | disposition home or self-care (01) ==
LOC: II 08:59 → 5TH 09:03 → II 14:00
PROVIDERS: ATTEND Internal Medicine
DX: E83.51 Hypocalcemia (principal); E83.42 Hypomagnesemia; E87.6 Hypokalemia
CPT/HCPCS: 96365; 96366; 96368; J3475; J1642; J0610

== ENCOUNTER 2020-12-09 09:34 | Outpatient (CLI) | payer OTHER ==
[~2020-12-09 09:34] MED LIST changes: -NORMAL SALINE 250 ML @ KVO IV PRN; +NORMAL SALINE 250 ML IV PRN
[2020-12-09 09:48] VITALS: BP 115/76
== END 2020-12-09 14:17 | disposition home or self-care (01) ==
LOC: II 09:34 → 5TH 09:38 → II 14:17
PROVIDERS: ATTEND Internal Medicine
DX: E83.51 Hypocalcemia (principal); E83.42 Hypomagnesemia; E87.6 Hypokalemia
CPT/HCPCS: 96365; 96366; 96368; J3475; J1642; J0610

== ENCOUNTER 2020-12-12 09:23 | Outpatient (CLI) | payer OTHER ==
[2020-12-12] MEDS ORDERED: POTASSIUM CHLORIDE IV PRN (09:45)
[2020-12-12] MEDS ORDERED: NORMAL SALINE IV PRN (09:45)
[2020-12-12 09:46] VITALS: BP 144/83
== END 2020-12-12 14:25 | disposition home or self-care (01) ==
LOC: II 09:23 → 5TH 09:25 → II 14:25
PROVIDERS: ATTEND Internal Medicine
DX: E83.51 Hypocalcemia (principal); E83.42 Hypomagnesemia; E87.6 Hypokalemia
CPT/HCPCS: 96365; 96366; 96368; J3475; J3480; J7040; J1642; J0610

== ENCOUNTER 2020-12-16 09:02 | Outpatient (CLI) | payer OTHER ==
[2020-12-16 09:26] VITALS: BP 120/77
== END 2020-12-16 13:18 | disposition home or self-care (01) ==
LOC: II 09:02 → 5TH 09:04 → II 13:18
PROVIDERS: ATTEND Internal Medicine
DX: E83.51 Hypocalcemia (principal); E83.42 Hypomagnesemia; E87.6 Hypokalemia
CPT/HCPCS: 96365; 96366; 96368; J3475; J1642; J0610